=== PATIENT | male | born 1995 | race Hispanic/Latino ===

== ENCOUNTER 2017-05-12 01:13 | Emergency (ER) | payer SELFPAY ==
[2017-05-12 02:41] VITALS: BP 111/73
--- NOTE | 2017-05-12 04:13 | XRay Report ---
FINAL REPORT EXAM: XR HAND 2V RT HISTORY: injury to rt hand COMPARISONS: None. FINDINGS: AP and lateral views right hand Oblique intra-articular fracture deformity extends through the proximal 5th phalanx in the right hand with bone callus formation/evidence of healing. There is mild intra-articular lucency at the distal aspect of the fracture deformity with overlying soft tissue swelling. No other potential fractures are seen. IMPRESSION: Old oblique fracture deformity through the proximal right 5th phalanx may have a superimposed acute component distally at the proximal interphalangeal joint. There is overlying soft tissue swelling. Correlation for point tenderness is requested.
[2017-05-12] MEDS ORDERED: ANCEF IM ONE (04:18)
[2017-05-12] MEDS ORDERED: BOOSTRIX IM ONE (04:18)
[2017-05-12] MEDS ORDERED: XYLOCAINE 1% 20 mL INFILTRATI ONE (04:19)
--- NOTE | 2017-05-12 04:22 | XRay Report ---
FINAL REPORT EXAM: XR FINGER(S) 2+V LT HISTORY: left index finger injury COMPARISONS: None. FINDINGS: Three views left hand/index finger A BB within the soft tissues adjacent to the left 2nd metacarpal is from previously reported injury. There is left index finger soft tissue swelling. A very small calcific density measuring less than 1 millimeter is present at the dorsal aspect of the distal phalanx, which is seen only on AP/oblique view. Mild cortical irregularity at the base of the 2nd distal phalanx is suggested on lateral view. IMPRESSION: Suggested nondisplaced extra-articular fracture involving the base of the 2nd distal phalanx with overlying soft tissue swelling. BB adjacent to the 2nd metacarpal is from reported old injury.
[2017-05-12] MEDS ORDERED: XYLOCAINE 2% INFILTRATI ONE ×2 (04:24→04:26)
--- NOTE | 2017-05-12 04:24 | XRay Report ---
FINAL REPORT EXAM: XR TOE(S) 2+V LT HISTORY: lt great toe injured COMPARISONS: None. FINDINGS: Three views left toes Subtle lucency extends through the distal tuft of the left great toe with overlying soft tissue swelling. No other potential fractures are seen. Skin folding projects over the 4th and 5th toes on AP view. Joint spaces are within normal limits. IMPRESSION: Nondisplaced left great toe distal tuft fracture.
[2017-05-12] MEDS ORDERED: TRIPLE ANTIBIOTIC TP ONE ×2 (04:46→06:06)
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
== END 2017-05-12 05:19 | disposition home or self-care (01) ==
LOC: ED 01:13
DX: S61.411A Laceration without foreign body of right hand, initial encounter (principal); F12.10 Cannabis abuse, uncomplicated; X99.8XXA Assault by other sharp object, initial encounter; Y93.89 Activity, other specified; Y99.8 Other external cause status; Y92.89 Other specified places as the place of occurrence of the external cause
CPT/HCPCS: 12002; 73120; 73140; 73660; 90471; 90715; 99283; J0690; A6250